=== PATIENT | male | born 2000 | race Caucasian/White ===

== ENCOUNTER 2021-10-20 18:51 | Emergency (ER) | payer SELFPAY ==
[~2021-10-20] VITALS: Ht 182.9 cm; Wt 64.5 kg
[2021-10-20 19:02] VITALS: BP 139/81
[2021-10-20] MEDS ORDERED: DIPHTH,PERTUSS(ACELL),TET TOX 0.5 ML DISP.SYRIN. VAX IM ONE (19:30)
[2021-10-20] MEDS ORDERED: LIDOCAINE 1% Multi-Dose 20 ML VIAL. IJ ONE (19:30)
--- NOTE | 2021-10-20 19:37 | PHYS DOC ---
Past History Past Surgical History: No Surgical History (AARON MANN APRN) Alcohol Use: Occasionally (AARON MANN APRN) Adult General Chief Complaint Chief Complaint: LACERATION/AVULSION HPI HPI Patient is a 21-year-old male presents to the emergency department reporting approximately an hour prior to arrival a glass broke in his right hand causing a laceration. Patient reports he covered it with a bandage and came straight to the emergency department for evaluation. Patient does not recall his last tetanus immunization, denies taking medications at home, denies other physical concerns or physical complaints. (AARON MANN APRN) Review of Systems Review of Systems 14 body systems of review of systems have been reviewed. See HPI for pertinent positives and negative responses, otherwise all other systems are negative, nonpertinent or noncontributory. Constitutional: Negative except as outlined in HPI above. Skin: Negative except as outlined in HPI above. Eyes: Negative except as outlined in HPI above. HENT: Negative except as outlined in HPI above. Respiratory: Negative except as outlined in HPI above. Cardiovascular: Negative except as outlined in HPI above. GI: Negative except as outlined in HPI above. : Negative except as outlined in HPI above. Musculoskeletal: Negative except as outlined in HPI above. Integument: Negative except as outlined in HPI above. Neurologic: Negative except as outlined in HPI above. Endocrine: Negative except as outlined in HPI above. Lymphatic: Negative except as outlined in HPI above. Psychiatric: Negative except as outlined in HPI above. (AARON MANN APRN) Allergies Allergies Allergies Coded Allergies Type Severity Reaction Last Updated Verified No Known Drug Allergies 10/20/21 No (AARON MANN APRN) Physical Exam Physical Exam Constitutional: Well developed, well nourished, no acute distress, non-toxic appearance. 21-year-old male in no apparent distress. HENT: Normocephalic, atraumatic. Eyes: Conjunctiva normal, no discharge. Neck: Normal range of motion, no stridor. Cardiovascular: No cyanosis appreciated, distal cap refill less than 2 seconds. Lungs & Thorax: Patient is in no respiratory distress, no audible adventitious lung sounds appreciated. Abdomen: Nontender, no abnormalities noted. Skin: Warm, dry, no erythema, no rash. See extremity note for focused skin examination. Back: No tenderness, no deformities. Extremities: No tenderness, no cyanosis, no clubbing, ROM intact, no edema. Except for right hand, there is a laceration to the index finger medial aspect 2 cm in length full skin thickness, full AROM/PROM of all digits of right hand, distal cap refills less than 2 seconds, 2+ radial pulses bilaterally. The nail is not involved. Full flexion, extension, abduction/abduction of index finger of the right hand. Neurologic: Alert and oriented X 3, normal motor function, normal sensory function, no focal deficits noted. Psychologic: Affect normal, judgement normal, mood normal. (AARON MANN APRN) Current Patient Data Vital Signs Vital Signs Date Time Temp Pulse Resp B/P (MAP) Pulse Ox O2 Delivery O2 Flow Rate FiO2 10/20/21 19:02 99.0 115 16 139/81 (100) 100 Room Air (AARON MANN APRN) EKG EKG [] (AARON MANN APRN) Radiology/Procedures Radiology/Procedures REASON: Glass broken in hand, laceration to 1st digit, r/o foreign body PROCEDURE: HAND RIGHT 3V Exam: Right hand 3 views INDICATION: Glass broken enhancement TECHNIQUE: Frontal, lateral oblique views the right hand Comparisons: None FINDINGS: Bone mineralization is normal. No acute or healed fractures. Soft tissues are unremarkable. Joint spaces are well-maintained. IMPRESSION: No acute osseous abnormality. No radiopaque foreign body. Electronically signed by: Felice Birmingham MD (10/20/2021 9:08 PM) [facility] (AARON MANN APRN) Heart Score C/O Chest Pain: No Risk Factors: Risk Factors: DM, Current or recent (<one month) smoker, HTN, HLP, family history of CAD, obesity. Risk Scores: Risk Factors: DM, Current or recent (<one month) smoker, HTN, HLP, family his tory of CAD, obesity. (AARON MANN APRN) Course & Med Decision Making Course & Med Decision Making Pertinent Labs and Imaging studies reviewed. (See chart for details) 21-year-old male, vital signs reviewed, presents emerged from concerning laceration to the right hand after a glass broke in his hand approximately 1 hour prior to arrival. Physical examination reveals to severe laceration to the index finger, will order x-ray to rule out foreign body, low suspicion for tendon involvement, will bring tetanus immunization up-to-date with Tdap medication. See laceration repair note. X-ray of right hand nonconcerning for foreign body. Discussed home laceration/user care with patient, sutures out in 7 to 10 days, return to ER precautions and concerns, signs and symptoms of infectious process, follow-up with primary care this week, patient gave verbal understanding of and is amenable to ED discharge planning. Discussed with the patient all findings and diagnostic testing as well as the need to follow-up with their primary care provider for further evaluation and treatment or return to the ED if any new or worsening symptoms. Strict return precautions were also discussed at length, the patient voiced understanding and agreement with the discharge planning. The patient was nontoxic in appearance, in no apparent distress, and hemodynamically stable at the time of disposition. (AARON MANN APRN) Course & Med Decision Making Did not see or evaluate patient. Did not discuss patient with [facility]. Agree with [facility]'s work-up and disposition per note. (JAMEE GONZALEZ MD) Dragon Disclaimer Dragon Disclaimer This electronic medical record was generated, in whole or in part, using a voice recognition dictation system. (AARON MANN APRN) Laceration Repair Lac Repair Indication: Laceration right index finger. Time: 1929 Confirmed: Patient, procedure, side, and site correct. Consent: Patient, has given verbal consent. Description/repair Procedure: The patient was placed in the appropriate position and anesthesia around the was achieved with 5 cc 1% lidocaine without epinephrine. The area was then Betadine solution, vigorously irrigated with 500 cc normal saline.. The laceration was explored for foreign bodies, there are no foreign bodies visually present. The laceration was closed with 4 interrupted sutures using 5-0 nylon the wound area was then dressed with Polysporin and bandage by ED nursing staff.. Complexity: Single layer. Post procedure exam: Circulation, motor, sensory examination intact, bleeding controlled. Total repaired wound length: 2 cm. Other Items: There were no other items. The patient tolerated the procedure well. Complications: There were no complications. Performed by: SelfAaron, [facility] Supervision: Dr. Gonzalez was present for consult regarding the critical aspects of the procedure including closure and post procedure exam. Total time: 10 minutes. (AARON MANN APRN) Departure Departure: Impression: Primary Impression: Finger laceration Additional Impression: Need for Tdap vaccination Disposition: 01 HOME / SELF CARE / HOMELESS Condition: GOOD Referrals: PCP,NO (PCP) Patient Instructions: Laceration Care, Adult Additional Instructions: You were seen in the emergency department for a laceration to your right index finger. Your tetanus immunization was brought up to date today in the emergency department, please update your immunization records accordingly. You have 4 sutures that will require removal in 7 to 10 days. Please follow-up with your primary care doctor for removal of the sutures. Please keep clean and dry, do not soak your hands in water, however please clean daily with soap and water and pat dry, apply antibiotic ointment and bandage until sutures are removed. As we discussed, please watch for signs and symptoms of infectious process. Return to the emergency department for wound evaluation for any signs of infection, or other concerns. Thank you for visiting our Emergency Department. It was a pleasure taking care of you today in the emergency department and we appreciate you trusting us with your care. If any additional problems come up don't hesitate to return to visit us. Please follow up with your primary care provider so they can plan additional care if needed and know about the problem that you had. If symptoms worsen come back to the Emergency Department. Any concerning symptoms that start such as chest pain, shortness of air, weakness or numbness on one side of the body, running high fevers or any other concerning symptoms return to the ER. Scripts Cephalexin (KEFLEX) 500 Mg Capsule 1 CAP PO QID for finger laceration, #40 CAP 0 Refills Prov: AARON MANN APRN 10/20/21 Problem Qualifiers Primary Impression: Finger laceration Encounter type: initial encounter Finger: index finger Damage to nail status: without damage Foreign body presence: without foreign body Laterality: right Qualified Codes: S61.210A - Laceration without foreign body of right index finger without damage to nail, initial encounter AARON MANN APRN Oct 20, 2021 19:37 JAMEE GONZALEZ MD Oct 21, 2021 01:29
[2021-10-20] MEDS ORDERED: CEPH500C PO (20:29)
[2021-10-20] MEDS ORDERED: BACITRACIN ZINC TOPICAL OINT PACKET. TP ONE (21:00)
--- NOTE | 2021-10-20 21:11 | RAD ---
Exam: Right hand 3 views INDICATION: Glass broken enhancement TECHNIQUE: Frontal, lateral oblique views the right hand Comparisons: None FINDINGS: Bone mineralization is normal. No acute or healed fractures. Soft tissues are unremarkable. Joint spa anmol are well-maintained. IMPRESSION: No acute osseous abnormality. No radiopaque foreign body. Electronically signed by: Felice Birmingham MD (10/20/2021 9:08 PM) [facility]
== END 2021-10-20 20:56 | disposition home or self-care (01) ==
LOC: ER 18:51
DX: S61.210A Laceration without foreign body of right index finger without damage to nail, initial encounter (principal); W25.XXXA Contact with sharp glass, initial encounter; Y93.89 Activity, other specified; Y92.89 Other specified places as the place of occurrence of the external cause; Y99.8 Other external cause status
CPT/HCPCS: 12001; 73130; 90471; 90715; 99283